=== PATIENT | female | born 1970 | race Hispanic/Latino ===

== ENCOUNTER 2021-02-27 13:05 | Inpatient (IN) | payer OTHER ==
[~2021-02-27] VITALS: Ht 160 cm; Wt 147.4 kg
[2021-02-27 14:08] LABS: BASOPHILS % 0.6 % (0.0-1.0); EOSINOPHILS # (AUTO) 0.3 (0.0-0.4); EOSINOPHILS % 3.7 % (0.0-6.0); HEMATOCRIT 32.8 % (34.2-44.1); HEMOGLOBIN 10.6 g/dL (12.0-16.0); LYMPHOCYTES # (AUTO) 1.6 (1.0-3.2); LYMPHOCYTES % 21.8 % (18.0-39.1); MEAN CORPUSCULAR HEMOGLOBIN 27.5 pg (28-32); MEAN CORPUSCULAR HGB CONC 32.3 g/dL (31-35); MONOCYTES # (AUTO) 0.5 (0.2-0.8); MONOCYTES % 6.3 % (4.4-11.3); NEUTROPHILS # (AUTO) 4.8 (2.1-6.9); NEUTROPHILS % 67.3 % (38.7-80.0); PLATELET COUNT 287 x10e3/uL (140-360); RED BLOOD COUNT 3.86 x10e6/uL (3.6-5.1); RED CELL DISTRIBUTION WIDTH 14.5 % (11.7-14.4)
[2021-02-27 14:16] LABS: INR 0.92
[2021-02-27 14:17] LABS: PARTIAL THROMBOPLASTIN TIME 41.3 seconds (23.8-35.5)
[2021-02-27 14:25] LABS: ALANINE AMINOTRANSFERASE 13 IU/L (0-55); ALBUMIN 3.7 g/dL (3.5-5.0); ALBUMIN/GLOBULIN RATIO 0.9 (0.8-2.0); ALKALINE PHOSPHATASE 81 IU/L (40-150); ANION GAP 15.1 mmol/L (8-16); BLOOD UREA NITROGEN 19 mg/dL (7-26); BUN/CREATININE RATIO 23 (6-25); CARBON DIOXIDE 25 mmol/L (22-29); CHLORIDE 104 mmol/L (98-107); CREATININE, SERUM 0.83 mg/dL (0.57-1.11); EST GLOMERULAR FILTRATION RATE > 60 ML/MIN (60-); GLUCOSE 112 mg/dL (74-118); POTASSIUM 4.1 mmol/L (3.5-5.1); SODIUM 140 mmol/L (136-145)
[2021-02-27] MEDS ORDERED: IOPAMIDOL 370 MG/ML 200 ML INFUS..BTL INJ ONE (15:25)
[2021-02-27] MEDS ORDERED: SODIUM CHLORIDE 0.9% 50ML 0 ML ONE (15:25)
[2021-02-27] MEDS: PIPERACILLIN/TAZOBAC 3.375 GM in SODIUM CHLORIDE 0.9% 50ML 50 ML IV SCH ×2 (18:24→23:50)
[2021-02-27] MEDS ORDERED: ONDANSETRON HCL INJ 2MG/ML 2ML 2 MG/ML VIAL IV PRN (18:30)
[2021-02-27] MEDS: SODIUM CHLORIDE 0.9% 1000ML 1,000 ML IV SCH (18:30)
[2021-02-27] MEDS ORDERED: VANCOMYCIN 1GM/NS 250 ML 250 ML IV SCH (18:30)
[2021-02-27] MEDS ORDERED: HYDROCODONE/APAP 7.5MG-325MG 1 EA TAB PO PRN (18:30)
[2021-02-27 20:55] LABS: AMPHETAMINES SCREEN,URINE NEGATIVE (NEGATIVE); BENZODIAZEPINES SCREEN,URINE NEGATIVE (NEGATIVE); PHENCYCLIDINE SCREEN,URINE NEGATIVE (NEGATIVE)
[2021-02-27] MEDS ORDERED: PIPERACILLIN/TAZOBAC 3.375 GM VIAL ONE (23:40)
[2021-02-27] MEDS ORDERED: SODIUM CHLORIDE 0.9% 50ML 50 ML ONE (23:40)
[2021-02-27] MEDS: MELATONIN 5 MG TABLET PO PRN (23:50)
[2021-02-28] VITALS (9 sets, daily range): BP systolic 110–129; BP diastolic 65–81
[2021-02-28] MEDS: SODIUM CHLORIDE 0.9% 1000ML 1,000 ML IV SCH (05:10)
[2021-02-28] MEDS ORDERED: PIPERACILLIN/TAZOBAC 3.375 GM VIAL ONE ×3 (05:23→16:07)
[2021-02-28] MEDS ORDERED: SODIUM CHLORIDE 0.9% 50ML 50 ML ONE ×3 (05:24→16:07)
[2021-02-28] MEDS: PIPERACILLIN/TAZOBAC 3.375 GM in SODIUM CHLORIDE 0.9% 50ML 50 ML IV SCH ×3 (05:49→16:18)
[2021-02-28 06:52] LABS: BASOPHILS % 0.5 % (0.0-1.0); EOSINOPHILS # (AUTO) 0.2 (0.0-0.4); EOSINOPHILS % 3.8 % (0.0-6.0); HEMATOCRIT 31.5 % (34.2-44.1); HEMOGLOBIN 9.9 g/dL (12.0-16.0); LYMPHOCYTES # (AUTO) 1.3 (1.0-3.2); LYMPHOCYTES % 21.8 % (18.0-39.1); MEAN CORPUSCULAR HEMOGLOBIN 27.3 pg (28-32); MEAN CORPUSCULAR HGB CONC 31.4 g/dL (31-35); MEAN CORPUSCULAR VOLUME 86.8 fL (81-99); MONOCYTES # (AUTO) 0.4 (0.2-0.8); MONOCYTES % 6.4 % (4.4-11.3); NEUTROPHILS # (AUTO) 4.1 (2.1-6.9); NEUTROPHILS % 67.3 % (38.7-80.0); PLATELET COUNT 269 x10e3/uL (140-360); RED BLOOD COUNT 3.63 x10e6/uL (3.6-5.1); RED CELL DISTRIBUTION WIDTH 14.2 % (11.7-14.4)
[2021-02-28 07:10] LABS: ALANINE AMINOTRANSFERASE 11 IU/L (0-55); ALBUMIN 3.4 g/dL (3.5-5.0); ALKALINE PHOSPHATASE 71 IU/L (40-150); ANION GAP 12.1 mmol/L (8-16); BLOOD UREA NITROGEN 13 mg/dL (7-26); BUN/CREATININE RATIO 19 (6-25); CALCIUM 8.5 mg/dL (8.4-10.2); CARBON DIOXIDE 26 mmol/L (22-29); CHLORIDE 107 mmol/L (98-107); EST GLOMERULAR FILTRATION RATE > 60 ML/MIN (60-); GLUCOSE 108 mg/dL (74-118); POTASSIUM 4.1 mmol/L (3.5-5.1); SODIUM 141 mmol/L (136-145)
[2021-02-28] MEDS ORDERED: ACETAMINOPHEN 325 MG TAB PO PRN (08:15)
[2021-02-28] MEDS ORDERED: ACETAMINOPHEN/CODEINE 300MG - 30MG TAB PO PRN (08:15)
[2021-02-28] MEDS ORDERED: HYDRALAZINE HCL 20 MG/ML VIAL IV PRN (08:15)
[2021-02-28] MEDS: FAMOTIDINE 20 MG TAB PO SCH (16:07)
[2021-02-28] MEDS: ENOXAPARIN SOD INJ 40 MG/0.4 ML SYR SC SCH (16:07)
[2021-02-28] MEDS ORDERED: SODIUM CHLORIDE 0.9% 250ML 250 ML ONE (16:18)
[2021-02-28] MEDS: MELATONIN 5 MG TABLET PO PRN (23:00)
[2021-03-01] VITALS (7 sets, daily range): BP systolic 107–127; BP diastolic 48–79
[2021-03-01] MEDS ORDERED: PIPERACILLIN/TAZOBAC 3.375 GM VIAL ONE ×3 (00:17→12:15)
[2021-03-01] MEDS ORDERED: SODIUM CHLORIDE 0.9% 50ML 50 ML ONE ×2 (00:18→12:15)
[2021-03-01 05:56] LABS: BASOPHILS # (AUTO) 0.1 (0.0-0.1); BASOPHILS % 0.7 % (0.0-1.0); EOSINOPHILS # (AUTO) 0.2 (0.0-0.4); EOSINOPHILS % 3.4 % (0.0-6.0); HEMATOCRIT 30.8 % (34.2-44.1); HEMOGLOBIN 9.8 g/dL (12.0-16.0); LYMPHOCYTES # (AUTO) 1.5 (1.0-3.2); LYMPHOCYTES % 21.5 % (18.0-39.1); MEAN CORPUSCULAR HEMOGLOBIN 27.4 pg (28-32); MEAN CORPUSCULAR HGB CONC 31.8 g/dL (31-35); MONOCYTES # (AUTO) 0.5 (0.2-0.8); MONOCYTES % 6.6 % (4.4-11.3); NEUTROPHILS # (AUTO) 4.7 (2.1-6.9); NEUTROPHILS % 67.5 % (38.7-80.0); PLATELET COUNT 291 x10e3/uL (140-360); RED BLOOD COUNT 3.58 x10e6/uL (3.6-5.1); RED CELL DISTRIBUTION WIDTH 14.1 % (11.7-14.4)
[2021-03-01 06:14] LABS: ALANINE AMINOTRANSFERASE 11 IU/L (0-55); ALBUMIN 3.5 g/dL (3.5-5.0); ALKALINE PHOSPHATASE 68 IU/L (40-150); ANION GAP 12.3 mmol/L (8-16); BLOOD UREA NITROGEN 14 mg/dL (7-26); BUN/CREATININE RATIO 20 (6-25); CALCIUM 8.5 mg/dL (8.4-10.2); CARBON DIOXIDE 25 mmol/L (22-29); CHLORIDE 107 mmol/L (98-107); EST GLOMERULAR FILTRATION RATE > 60 ML/MIN (60-); GLUCOSE 104 mg/dL (74-118); POTASSIUM 4.3 mmol/L (3.5-5.1); SODIUM 140 mmol/L (136-145)
[2021-03-01] MEDS: PIPERACILLIN/TAZOBAC 3.375 GM in SODIUM CHLORIDE 0.9% 50ML 50 ML IV SCH ×4 (06:34→12:28)
[2021-03-01] MEDS: FAMOTIDINE 20 MG TAB PO SCH ×2 (08:18→17:38)
[2021-03-01] MEDS ORDERED: CEFTRIAXONE SOD 1 GM/50 ML BAG IV SCH (13:30)
[2021-03-01] MEDS: CEFTRIAXONE SOD 1 GM in SODIUM CHLORIDE 0.9% 50ML 50 ML IV SCH (14:49)
[2021-03-01] MEDS ORDERED: RIFAMPIN 300 MG CAP PO SCH (17:00)
[2021-03-01] MEDS: ENOXAPARIN SOD INJ 40 MG/0.4 ML SYR SC SCH (17:39)
[2021-03-01] MEDS: CLINDAMYCIN 600MG / 50ML 50 ML IV SCH (17:39)
[2021-03-01] MEDS ORDERED: TRIMETHOPRIM/SULFAMETHOXAZOLE 160-800 MG TAB PO SCH (21:00)
[2021-03-01] MEDS: MELATONIN 5 MG TABLET PO PRN (22:00)
[2021-03-02] VITALS (8 sets, daily range): BP systolic 98–122; BP diastolic 49–84
[2021-03-02 05:49] LABS: BASOPHILS % 0.5 % (0.0-1.0); EOSINOPHILS # (AUTO) 0.3 (0.0-0.4); HEMATOCRIT 32.5 % (34.2-44.1); HEMOGLOBIN 10.3 g/dL (12.0-16.0); LYMPHOCYTES # (AUTO) 1.5 (1.0-3.2); LYMPHOCYTES % 23.8 % (18.0-39.1); MEAN CORPUSCULAR HEMOGLOBIN 27.1 pg (28-32); MEAN CORPUSCULAR HGB CONC 31.7 g/dL (31-35); MEAN CORPUSCULAR VOLUME 85.5 fL (81-99); MONOCYTES # (AUTO) 0.4 (0.2-0.8); MONOCYTES % 5.8 % (4.4-11.3); NEUTROPHILS # (AUTO) 4.1 (2.1-6.9); NEUTROPHILS % 65.7 % (38.7-80.0); PLATELET COUNT 300 x10e3/uL (140-360); RED CELL DISTRIBUTION WIDTH 13.8 % (11.7-14.4); RETICULOCYTE % 2.6 % (0.8-2.2)
[2021-03-02] MEDS: CLINDAMYCIN 600MG / 50ML 50 ML IV SCH ×5 (06:00→23:32)
[2021-03-02 06:24] LABS: % IRON SATURATION 10 % (15-50); ANION GAP 14.2 mmol/L (8-16); BLOOD UREA NITROGEN 16 mg/dL (7-26); BUN/CREATININE RATIO 23 (6-25); CALCIUM 8.9 mg/dL (8.4-10.2); CARBON DIOXIDE 26 mmol/L (22-29); CHLORIDE 105 mmol/L (98-107); EST GLOMERULAR FILTRATION RATE > 60 ML/MIN (60-); GLUCOSE 99 mg/dL (74-118); IRON 32 ug/dL (50-170); MAGNESIUM 1.8 MG/DL (1.3-2.1); PHOSPHORUS 4.2 MG/DL (2.3-4.7); POTASSIUM 4.2 mmol/L (3.5-5.1); SODIUM 141 mmol/L (136-145); TOTAL IRON BINDING CAPACITY 312 ug/dL (261-478); TRANSFERRIN 223 mg/dL (180-382)
[2021-03-02 06:33] LABS: FERRITIN 110.16 ng/mL (4.63-204.00)
[2021-03-02] MEDS: FAMOTIDINE 20 MG TAB PO SCH ×2 (07:30→16:30)
[2021-03-02] MEDS: ASCORBIC ACID 500 MG TAB PO SCH ×2 (09:02→17:59)
[2021-03-02] MEDS: OYST-CAL-D 500MG TABLET PO SCH ×2 (09:02→17:59)
[2021-03-02] MEDS: MAGNESIUM OXIDE 400 MG TAB PO SCH ×2 (09:02→17:59)
[2021-03-02] MEDS: ZINC SULFATE 220 MG CAP PO SCH ×2 (09:02→17:59)
[2021-03-02] MEDS: MULTIVITAMINS/MINERALS TAB PO SCH (09:02)
[2021-03-02] MEDS ORDERED: ONDANSETRON HCL 4 MG ORAL DISINTEGRATING TAB PO PRN (13:00)
[2021-03-02] MEDS: CEFTRIAXONE SOD 1 GM in SODIUM CHLORIDE 0.9% 50ML 50 ML IV SCH (14:01)
[2021-03-02] MEDS: ENOXAPARIN SOD INJ 40 MG/0.4 ML SYR SC SCH (17:59)
[2021-03-02] MEDS: MELATONIN 5 MG TABLET PO PRN (23:42)
[2021-03-03] MEDS: CLINDAMYCIN 600MG / 50ML 50 ML IV SCH ×2 (05:11→12:00)
[2021-03-03] MEDS ORDERED: NEURONTIN300 MG PO (06:51)
[2021-03-03] MEDS ORDERED: TYLENOL # 31 EA PO (06:52)
[2021-03-03 08:25] VITALS: BP 95/66
[2021-03-03] MEDS: MULTIVITAMINS/MINERALS TAB PO SCH (08:48)
[2021-03-03] MEDS: FAMOTIDINE 20 MG TAB PO SCH (08:48)
[2021-03-03] MEDS: MAGNESIUM OXIDE 400 MG TAB PO SCH (08:48)
[2021-03-03] MEDS: OYST-CAL-D 500MG TABLET PO SCH (08:49)
[2021-03-03] MEDS: ZINC SULFATE 220 MG CAP PO SCH (08:49)
[2021-03-03] MEDS: ASCORBIC ACID 500 MG TAB PO SCH (08:49)
[2021-03-03 09:00] VITALS: BP 95/66
[2021-03-03] MEDS ORDERED: IRON SUCROSE 100 MG in SODIUM CHLORIDE 0.9% 100 ML 100 ML IV SCH (09:00)
[2021-03-03] MEDS ORDERED: GABAPENTIN 300 MG CAP PO SCH (09:00)
[2021-03-03 11:36] VITALS: BP 114/76
[2021-03-03] MEDS: CEFTRIAXONE SOD 1 GM in SODIUM CHLORIDE 0.9% 50ML 50 ML IV SCH (14:00)
[2021-03-03 15:47] VITALS: BP 110/74
== END 2021-03-03 16:15 | disposition home or self-care (01) | DRG 914 ==
LOC: ER 16:37 → ERHOLD 18:48 → MED/SURG3 21:48
PROVIDERS: ADMIT Internal Medicine; ATTEND Internal Medicine
PROC: 02HV33Z Insertion of Infusion Device into Superior Vena Cava, Percutaneous Approach (ICD-10-PCS; principal; 2021-03-02)
PROC: B548ZZA Ultrasonography of Superior Vena Cava, Guidance (ICD-10-PCS; principal; 2021-03-02)
DX: S87.81XA Crushing injury of right lower leg, initial encounter (principal); L03.115 Cellulitis of right lower limb; Z68.43 Body mass index [BMI] 50.0-59.9, adult; J98.11 Atelectasis; F32.9 Major depressive disorder, single episode, unspecified; F43.10 Post-traumatic stress disorder, unspecified; V49.88XA Car occupant (driver) (passenger) injured in other specified transport accidents, initial encounter; Y93.89 Activity, other specified; Z86.19 Personal history of other infectious and parasitic diseases; Z83.3 Family history of diabetes mellitus; Z80.9 Family history of malignant neoplasm, unspecified; E66.01 Morbid (severe) obesity due to excess calories; W23.0XXA Caught, crushed, jammed, or pinched between moving objects, initial encounter; D50.9 Iron deficiency anemia, unspecified; G62.9 Polyneuropathy, unspecified; Z20.822 Contact with and (suspected) exposure to COVID-19
CPT/HCPCS: 36415; 36569; 71045; 71101; 71250; 80048; 80053; 80307; 82607; 82728; 82746; 83540; 83605; 83735; 84100; 84466; 84702; 85025; 85045; 85610; 85730; 87040; 93971; 99251; 99284; J0696; J1650; J1756; J2543; J3370; J7030; J7050; Q9967; U0002

== ENCOUNTER 2021-04-18 08:56 | Emergency (ER) | payer OTHER ==
[~2021-04-18] VITALS: Ht 160 cm; Wt 147.4 kg
[~2021-04-18 08:56] MED LIST: NEURONTIN300 MG PO; TYLENOL # 31 EA PO
[2021-04-18] MEDS ORDERED: KETOROLAC TROMETHAMINE 30 MG/ML VIAL IM NR (09:14)
[2021-04-18] MEDS ORDERED: LIDOCAINE 4% PATCH TP SCH (09:30)
[2021-04-18] MEDS ORDERED: CYCLOBENZAPRINE5 MG PO (09:55)
[2021-04-18] MEDS ORDERED: LIDOPATCH1 EACH TOP (09:56)
[2021-04-18 10:02] VITALS: BP 110/78
== END 2021-04-18 10:12 | disposition home or self-care (01) ==
LOC: ER 09:15
DX: R21 Rash and other nonspecific skin eruption (principal); M54.2 Cervicalgia; M54.12 Radiculopathy, cervical region; M25.512 Pain in left shoulder; F32.9 Major depressive disorder, single episode, unspecified; E66.01 Morbid (severe) obesity due to excess calories
CPT/HCPCS: 73030; 93005; 99284; J1885

== ENCOUNTER 2021-11-14 21:03 | Emergency (ER) | payer OTHER ==
[~2021-11-14] VITALS: Ht 160 cm; Wt 147.4 kg
[~2021-11-14 21:03] MED LIST changes: +CYCLOBENZAPRINE5 MG PO; +LIDOPATCH1 EACH TOP
[2021-11-14] MEDS ORDERED: KETOROLAC TROMETHAMINE 60 MG/2 ML VIAL IM ONE (21:45)
[2021-11-14] MEDS ORDERED: METHOCARBAMOL 100MG/1ML 10ML VIAL IV ONE (21:45)
[2021-11-14] MEDS ORDERED: KETOROLAC TROMETHAMINE 60 MG/2 ML VIAL ONE (21:48)
[2021-11-14] MEDS ORDERED: METHOCARBAMOL 750 MG TAB ONE (21:58)
[2021-11-15] MEDS ORDERED: IBUPROFEN800 MG PO (00:40)
== END 2021-11-15 01:00 | disposition home or self-care (01) ==
LOC: ER 21:16
DX: T14.8XXA Other injury of unspecified body region, initial encounter (principal); M54.2 Cervicalgia; M54.9 Dorsalgia, unspecified; W01.0XXA Fall on same level from slipping, tripping and stumbling without subsequent striking against object, initial encounter; Y92.009 Unspecified place in unspecified non-institutional (private) residence as the place of occurrence of the external cause; Z88.1 Allergy status to other antibiotic agents; Z88.0 Allergy status to penicillin
CPT/HCPCS: 70450; 72125; 72131; 73080; 73562; 73630; 99283; J1885

== ENCOUNTER 2022-05-07 20:40 | Emergency (ER) | payer OTHER ==
[~2022-05-07] VITALS: Ht 160 cm; Wt 147.4 kg
[~2022-05-07 20:40] MED LIST changes: +IBUPROFEN800 MG PO
[2022-05-07 21:19] LABS: BASOPHILS % 0.5 % (0.0-1.0); EOSINOPHILS # (AUTO) 0.3 (0.0-0.4); EOSINOPHILS % 4.1 % (0.0-6.0); HEMOGLOBIN 11.4 g/dL (12.0-16.0); LYMPHOCYTES # (AUTO) 1.7 (1.0-3.2); LYMPHOCYTES % 22.9 % (18.0-39.1); MEAN CORPUSCULAR HEMOGLOBIN 27.5 pg (28-32); MEAN CORPUSCULAR HGB CONC 30.8 g/dL (31-35); MEAN CORPUSCULAR VOLUME 89.4 fL (81-99); MONOCYTES # (AUTO) 0.4 (0.2-0.8); NEUTROPHILS # (AUTO) 4.8 (2.1-6.9); NEUTROPHILS % 66.1 % (38.7-80.0); PLATELET COUNT 223 x10e3/uL (140-360); RED BLOOD COUNT 4.14 x10e6/uL (3.6-5.1); RED CELL DISTRIBUTION WIDTH 14.6 % (11.7-14.4)
[2022-05-07 21:37] LABS: ALBUMIN 3.8 g/dL (3.5-5.0); ALBUMIN/GLOBULIN RATIO 1.3 (0.8-2.0); ANION GAP 13.7 mmol/L (8-16); CALCIUM 8.9 mg/dL (8.4-10.2); CREATININE, SERUM 0.66 mg/dL (0.57-1.11); POTASSIUM 3.7 mmol/L (3.5-5.1)
== END 2022-05-07 23:40 | disposition home or self-care (01) ==
LOC: ER 20:52
DX: R60.9 Edema, unspecified (principal); J06.9 Acute upper respiratory infection, unspecified; F32.A Depression, unspecified; E66.01 Morbid (severe) obesity due to excess calories; Z20.822 Contact with and (suspected) exposure to COVID-19
CPT/HCPCS: 36415; 71045; 73620; 80053; 83880; 84484; 85025; 93005; 93971; 99284; U0002

== ENCOUNTER 2022-10-06 01:50 | Emergency (ER) | payer OTHER ==
[~2022-10-06] VITALS: Ht 160 cm; Wt 147.4 kg
[2022-10-06] MEDS ORDERED: BENZONATATE200 MG PO (04:14)
[2022-10-06] MEDS ORDERED: XOFLUZA80 MG PEG (04:14)
== END 2022-10-06 04:19 | disposition home or self-care (01) ==
LOC: ER 01:56
DX: R05.9 Cough, unspecified (principal); J10.1 Influenza due to other identified influenza virus with other respiratory manifestations; F32.A Depression, unspecified; E66.01 Morbid (severe) obesity due to excess calories; Z20.822 Contact with and (suspected) exposure to COVID-19
CPT/HCPCS: 71046; 99283; U0002